=== PATIENT | female | born 1995 | race Caucasian/White ===

== ENCOUNTER → 2021-10-03 | Outpatient (CLI) | payer OTHER | LOC: EDUNIT# 10-01 15:30 → M WHC 10:10 | PROVIDERS: ATTEND Advanced Practice Midwife | DX: E28.2 Polycystic ovarian syndrome (principal) ==

== ENCOUNTER → 2021-11-17 | Outpatient (CLI) | payer OTHER ==
[2021-11-17 17:01] LABS: ESTRADIOL 37.9 PG/ML; FOLLICLE STIMULATING HORMONE 5.7 mIU/mL; FREE T4 1.25 NG/DL (0.76-1.46); LUTEINIZING HORMONE 10.4 mIU/mL; PROLACTIN 20.6 NG/ML; THYROID STIMULATING HORMONE 0.847 uIU/ML (0.358-3.740)
== END ==
LOC: M LAB 15:31
PROVIDERS: ATTEND Advanced Practice Midwife
DX: E28.2 Polycystic ovarian syndrome (principal)

== ENCOUNTER → 2021-12-05 | Outpatient (CLI) | payer OTHER | LOC: M LAB 11:29 | PROVIDERS: ATTEND Advanced Practice Midwife | DX: E28.2 Polycystic ovarian syndrome (principal) ==

== ENCOUNTER 2022-01-18 12:50 | Emergency (ER) | payer OTHER ==
[~2022-01-18] VITALS: Ht 154.9 cm; Wt 87.5 kg
[2022-01-18 12:51] VITALS: BP 126/59
[2022-01-18] MEDS ORDERED: METF500T13 PO (12:57)
[2022-01-18 13:02] VITALS: O2SAT 96
[2022-01-18 13:45] LABS: RSV AMPLIFICATION NEGATIVE (NEGATIVE)
[2022-01-18] MEDS ORDERED: ACETAMINOPHEN 325 MG TAB PO ONE (15:05)
[2022-01-18] MEDS ORDERED: CIPR-249 PO (16:05)
== END 2022-01-18 16:12 | disposition home or self-care (01) ==
LOC: M ED 12:50
DX: J06.9 Acute upper respiratory infection, unspecified (principal); N39.0 Urinary tract infection, site not specified

== ENCOUNTER → 2022-02-26 | Outpatient (CLI) | payer OTHER ==
[~2022-02-26] MED LIST: CIPR-249 PO; ISOVUE-370 76% 100ML VIAL As Ordered ONE; METF500T13 PO
== END ==
LOC: M RADPRO 11:21
PROVIDERS: ATTEND Specialist
DX: N92.6 Irregular menstruation, unspecified (principal)
CPT/HCPCS: 58340; 74740; Q9967

== ENCOUNTER → 2022-03-17 | Outpatient (REF) | payer OTHER ==
[~2022-03-17] MED LIST changes: -ISOVUE-370 76% 100ML VIAL As Ordered ONE
== END ==
LOC: M SFHCPLAZ 17:28
PROVIDERS: ATTEND Physician Assistant
DX: J02.9 Acute pharyngitis, unspecified (principal)

== ENCOUNTER 2022-06-03 10:33 | Emergency (ER) | payer OTHER ==
[~2022-06-03] VITALS: Ht 154.9 cm; Wt 84.7 kg
[2022-06-03 11:28] LABS: RSV AMPLIFICATION NEGATIVE (NEGATIVE)
[2022-06-03 12:51] LABS: BASO % 0.7 % (0.0-1.0); EOS # 0.1 10^3/uL (0.0-0.5); EOS % 2.3 % (0.0-3.0); HEMATOCRIT 41.5 % (36.0-47.0); HEMOGLOBIN 13.8 g/dl (12.0-15.5); LYMPH # 2.3 10^3/uL (1.5-5.0); LYMPH % 40.3 % (24.0-44.0); MEAN CORPUSCULAR HEMOGLOBIN 28.3 pg (27.0-33.0); MEAN CORPUSCULAR HGB CONC 33.3 g/dl (32.0-36.5); MONO # 0.3 10^3/uL (0.0-0.8); MONO % 5.2 % (2.0-8.0); NEUTROPHILS # 2.9 10^3/uL (1.5-8.5); NEUTROPHILS % 51.1 % (36.0-66.0); PLATELET COUNT, AUTOMATED 299 10^3/uL (150-450); RED BLOOD COUNT 4.88 10^6/uL (4.00-5.40); WHITE BLOOD COUNT 5.6 10^3/uL (4.0-10.0)
[2022-06-03 13:05] LABS: PARTIAL THROMBOPLASTIN TIME 30.8 SECONDS (25.9-37.0)
[2022-06-03 13:08] LABS: INR 0.9; PROTHROMBIN TIME 12.6 SECONDS (12.7-14.5)
[2022-06-03] MEDS ORDERED: ISOVUE-370 76% 100ML VIAL As Ordered ONE (13:43)
[2022-06-03 14:37] VITALS: BP 114/82
== END 2022-06-03 14:40 | disposition home or self-care (01) ==
LOC: M ED 10:33
DX: R05.9 Cough, unspecified (principal); R04.2 Hemoptysis; E28.2 Polycystic ovarian syndrome; Z79.84 Long term (current) use of oral hypoglycemic drugs
CPT/HCPCS: 36415; 71046; 71275; 80047; 84702; 85025; 85610; 85730; 87631; 99284; Q9967

== ENCOUNTER → 2022-07-21 | Outpatient (CLI) | payer OTHER | LOC: M LAB 15:27 | PROVIDERS: ATTEND Advanced Practice Midwife | DX: N97.0 Female infertility associated with anovulation (principal) ==

== ENCOUNTER → 2022-09-27 | Outpatient (REF) | payer OTHER ==
[2022-09-27 18:33] LABS: APPEARANCE, URINE MANUAL CLEAR (CLEAR); BILIRUBIN, URINE MANUAL NEGATIVE (NEGATIVE); BLOOD URINE MANUAL POSITIVE (NEGATIVE); COLOR, URINE MANUAL YELLOW (YELLOW); GLUCOSE, URINE (UA) MANUAL NEGATIVE (NEGATIVE); KETONE, URINE MANUAL NEGATIVE (NEGATIVE); LEUKOCYTE ESTERASE, URINE MAN POSITIVE (NEGATIVE); NITRITE, URINE MANUAL NEGATIVE (NEGATIVE); PROTEIN, URINE MANUAL TRACE mg/dL (NEGATIVE); UROBILINOGEN, URINE MANUAL NORMAL (NORMAL)
[2022-09-27 18:53] LABS: WBC, URINE 40-50 /hpf (0-3)
[2022-09-27 18:57] LABS: BACTERIA, URINE LARGE AMOUNT; SQUAMOUS EPITHELIAL CELL URINE LARGE AMOUNT /hpf (SMALL AMT)
== END ==
LOC: M LAB REF 17:58
PROVIDERS: ATTEND Physician Assistant Medical
DX: N39.0 Urinary tract infection, site not specified (principal)

== ENCOUNTER → 2022-11-10 | Outpatient (REF) | payer OTHER | LOC: M SFHCLERA 11:32 | PROVIDERS: ATTEND Student in an Organized Health Care Education/Training Program | DX: J06.9 Acute upper respiratory infection, unspecified (principal) | CPT/HCPCS: 87428; 87635; G0463 ==

== ENCOUNTER 2022-11-15 15:53 | Emergency (ER) | payer OTHER ==
[~2022-11-15] VITALS: Ht 154.9 cm; Wt 84.3 kg
[2022-11-15] MEDS ORDERED: ONDANSETRON 4MG 2ML VIAL IV ONE (16:40)
[2022-11-15] MEDS ORDERED: MORPHINE 2 MG/ML 1ML VIAL IV ONE (16:40)
[2022-11-15] MEDS ORDERED: NS 1,000 ML IV ONE (16:40)
[2022-11-15 17:11] LABS: BASO # 0.1 10^3/uL (0.0-0.2); BASO % 0.3 % (0.0-1.0); HEMATOCRIT 42.4 % (36.0-47.0); HEMOGLOBIN 14.3 g/dl (12.0-15.5); LYMPH # 1.8 10^3/uL (1.5-5.0); LYMPH % 8.4 % (24.0-44.0); MEAN CORPUSCULAR HEMOGLOBIN 28.9 pg (27.0-33.0); MEAN CORPUSCULAR HGB CONC 33.7 g/dl (32.0-36.5); MEAN CORPUSCULAR VOLUME 85.8 fl (80.0-96.0); MONO # 1.1 10^3/uL (0.0-0.8); MONO % 4.9 % (2.0-8.0); NEUTROPHILS # 18.7 10^3/uL (1.5-8.5); PLATELET COUNT, AUTOMATED 355 10^3/uL (150-450); RED BLOOD COUNT 4.94 10^6/uL (4.00-5.40); WHITE BLOOD COUNT 21.8 10^3/uL (4.0-10.0)
[2022-11-15 17:37] LABS: LIPASE 28 U/L (12-53)
[2022-11-15 17:39] LABS: ALKALINE PHOSPHATASE 82 U/L (46-116); ALT/SGPT 28 U/L (7.0-40); AST/SGOT 13 U/L (<34); BILIRUBIN,DIRECT 0.6 MG/DL (<0.4); BILIRUBIN,TOTAL 1.5 MG/DL (0.3-1.2); BLOOD UREA NITROGEN 7 MG/DL (9-23); CARBON DIOXIDE LEVEL 24 MMOL/L (20-31); CHLORIDE LEVEL 103 MMOL/L (98-107); CREATININE FOR GFR 0.65 MG/DL (0.55-1.30); GLOMERULAR FILTRATION RATE > 60.0 (>60); GLUCOSE, FASTING 101 MG/DL (60-100); HCG, SERUM QUALITATIVE NEGATIVE (NEGATIVE); POTASSIUM SERUM 3.8 MMOL/L (3.5-5.1); SODIUM LEVEL 137 MMOL/L (136-145); TOTAL PROTEIN 7.5 G/DL (5.7-8.2)
[2022-11-15] MEDS ORDERED: ISOVUE-370 76% 100ML VIAL As Ordered ONE (17:51)
[2022-11-15 20:32] VITALS: BP 109/70
== END 2022-11-15 20:47 | disposition home or self-care (01) ==
LOC: M ED 15:53
DX: R19.7 Diarrhea, unspecified (principal); E28.2 Polycystic ovarian syndrome
CPT/HCPCS: 74177; 80048; 80076; 81001; 83605; 83690; 84703; 85025; 96374; 96375; 99283; J2270; J2405